=== PATIENT | female | born 1975 | race Caucasian/White ===

== ENCOUNTER 2019-05-02 22:34 | Emergency (ER) | payer BC ==
--- OUTSIDE RECORDS SUMMARY | 2019-05-02 22:47 | XMS REPORT | Summary of Care ---
:1975 Author Organization [facility] Address [address] [facility] [place] [address] Care Team Providers Name Role Phone Alexandru Colbert MD Primary Care Provider Reason for Visit Reason Comments Physical Gynecologic Exam Encounter Details Date Type Department Care Team Description 03/05/2019 Office Visit Ben Black Sha, Routine general medical examination at a health care facility (Primary Dx); MALACHI Wood Pap smear for cervical cancer screening; [address] [facility] Essential hypertension; [place] [address] [place], [place] Pure hypercholesterolemia [phone] [id number] Allergies No Known Allergiesdocumented as of this encounter (statuses as of 03/05/2019) Medications Medication Sig Dispensed Refills Start Date End Date Status hydrochlorothiazide TAKE 1 90 Tab 3 11/03/2018 Active (HCTZ, ORETIC) 25 MG TABLET BY Oral TabIndications: MOUTH EVERY Essential hypertension DAY metoprolol succinate TAKE 1 90 Tab 0 02/03/2019 Active (TOPROL XL) 50 MG Oral TABLET BY TABLET SR 24 MOUTH EVERY HRIndications: Essential DAY hypertension losartan (COZAAR) 50 MG Take 1 Tab 90 Tab 3 03/05/2019 Active Oral Tab by mouth DAILY. fluconazole (DIFLUCAN) Take 1 Tab 3 Tab 0 03/06/2018 03/05/20 Discontinued 150 MG Oral by mouth ONE 19 TabIndications: Vaginal TIME. Use yeast infection prn for vaginal yeast. documented as of this encounter (statuses as of 03/05/2019) Active Problems Problem Noted Date Chronic nonallergic rhinitis 11/27/2013 IUD (intrauterine device) in place 10/27/2013 Overview: Paraguard IUD , placed at [facility] 03/08/2011. Herpes zoster without mention of complication 12/18/2011 Overview: L1 distribution on left side. 12/18/11. Pure hypercholesterolemia 03/10/2010 Essential hypertension 10/14/2007 Family history of diabetes mellitus 10/14/2007 FAMILY HISTORY OF HIGH CHOLESTEROL 10/14/2007 documented as of this encounter (statuses as of 03/05/2019) Immunizations Name Administration Dates Next Due Influenza (IM) Preservative Free 04/21/2018, 05/09/2017, 05/06/2015, 04/06/2014, 03/23/2009 documented as of this encounter Social History Tobacco Use Types Packs/Day Years Used Date Former Smoker Quit: 08/22/2006 Smokeless Tobacco: Never Used Alcohol Use Drinks/Week oz/Week Comments Yes 0 Standard drinks or equivalent 0.0 1 glass wine daily Sex Assigned at Date Recorded Not on file Job Start Date Occupation Industry Not on file Not on file Not on file Travel History Travel Start Travel End No recent travel history available. documented as of this encounter Last Filed Vital Signs Vital Sign Reading Time Taken Comments Blood Pressure 158/92 03/05/2019 9:32 AM EDT Pulse 68 03/05/2019 9:32 AM EDT Temperature - - Respiratory Rate - - Oxygen Saturation 98% 03/05/2019 9:32 AM EDT Inhaled Oxygen Concentration - - Weight 88.5 kg (195 lb) 03/05/2019 9:32 AM EDT Height 168.9 cm (5' 6.5") 03/05/2019 9:32 AM EDT Body Mass Index 31 03/05/2019 9:32 AM EDT documented in this encounter Patient Instructions Patient InstructionsMarianne Dalton FNP - 03/05/2019 9:40 AM EDTLab work and pap smear done today. I will send you results Mammogram next summer Start losartan daily for BP. Goal is below 140/90 Follow up in 3 months.Electronically signed by Marianne Dalton FNP at 2018 10:06 AM EDT documented in this encounter Progress Notes Dong Daltonon, ENVIRONMENTAL SAMPLING TECHNICIAN - 03/05/2019 9:40 AM EDT PATIENT: Lindsey Loyd : 1975 DATE OF SERVICE: 03/05/2019 Chief Complaint Patient presents with Physical Gynecologic Exam SUBJECTIVE: 43-y.o. female for annual routine physical and cooling pan tender exam with pap smear. She is feeling well. Has gained weight and BP up. Patient Active Problem List Diagnosis Date Noted Chronic nonallergic rhinitis 11/27/2013 IUD (intrauterine device) in place 10/27/2013 Paraguard IUD , placed at [facility] 03/08/2011. Herpes zoster without mention of complication 12/18/2011 L1 distribution on left side. 12/18/11. Pure hypercholesterolemia 03/10/2010 Essential hypertension 10/14/2007 Family history of diabetes mellitus 10/14/2007 FAMILY HISTORY OF HIGH CHOLESTEROL 10/14/2007 Current Outpatient Medications Medication Sig hydrochlorothiazide (HCTZ, ORETIC) 25 MG Oral Tab TAKE 1 TABLET BY MOUTH EVERY DAY losartan (COZAAR) 50 MG Oral Tab Take 1 Tab by mouth DAILY. metoprolol succinate (TOPROL XL) 50 MG Oral TABLET SR 24 HR TAKE 1 TABLET BY MOUTH EVERY DAY No current facility-administered medications for this visit. Allergies: Patient has no known allergies. Patient's last menstrual period was 03/05/2019. ROS: She denies constitutional symptoms of fatigue, weakness, weight loss or gain, fevers, night sweats. No dyspnea or chest pain on exertion. No abdominal pain, change in bowel habits, black or bloody stools. No urinary tract symptoms. 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 Now in for 8 years. NO children. Normal menses, no pelvic pain or discharge. No breast pain or new or enlarging lumps on self exam. No neurological complaints. OBJECTIVE: The patient appears well, alert, oriented x 3, in no distress. BP (!) 158/92 (BP Location: Left arm, Patient Position: Sitting) | Pulse 68 | Ht 5' 6.5" (1.689 m) | Wt 195 lb (88.5 kg) | LMP 03/05/2019 | SpO2 98% | BMI 31.00 kg/m ENT normal. Neck supple. No adenopathy or thyromegaly. ERIC. Lungs are clear, good air entry, no wheezes, rhonchi or rales. S1 and S2 normal, no murmurs, regular rate and rhythm. Abdomen soft withouttenderness, guarding, mass or organomegaly. Extremities show no edema, normal peripheral pulses. Neurological is normal, no focal findings. BREAST EXAM: breasts appear normal, no suspicious masses, no skin or nipple changes or axillary nodes PELVIC EXAM: normal external genitalia, vulva, vagina, cervix, uterus and adnexa. IUD string noted. Pap done. BP Readings from Last 3 Encounters: 03/05/19 (!) 158/92 12/10/17 110/78 12/06/16 128/80 ASSESSMENT: ICD-9-CM ICD-10-CM 1. Routine general medical examination at a health care facility V70.0 Z00.00 2. Pap smear for cervical cancer screening V76.2 Z12.4 PAP SMEAR THINPREP AND HPV 3. Essential hypertension, not at goal 401.9 I10 COMPREHENSIVE METABOLIC PANEL 4. Pure hypercholesterolemia 272.0 E78.00 LIPID PROFILE THYROID STIMULATING HORMONE Patient Instructions Lab work and pap smear done today. I will send you results Mammogram next summer Start losartan daily for BP. Goal is below 140/90 Follow up in 3 months. Author: MALACHI Zabala 03/05/2019 10:10 documented in this encounter Plan of Treatment Name Type Priority Associated Diagnoses Order Schedule COMPREHENSIVE METABOLIC Lab Routine Essential hypertension Ordered: PANEL 03/05/2019 LIPID PROFILE Lab Routine Pure hypercholesterolemia Ordered: 03/05/2019 THYROID STIMULATING Lab Routine Pure hypercholesterolemia Ordered: HORMONE 03/05/2019 PAP SMEAR THINPREP AND Lab Routine Pap smear for cervical cancer Ordered: HPV screening 03/05/2019 Health Maintenance Due Date Last Done Comments DIABETES SCREENING 11/30/2018 11/30/2017, 12/19/2016, 10/09/2013, Additional history exists LIPID DISORDER SCREENING 11/30/2018 11/30/2017, 12/19/2016, 10/09/2013, Additional history exists MAMMOGRAM (SCREENING) 12/10/2018 12/10/2017, 12/24/2016, 12/06/2016, Additional history exists INFLUENZA VACCINE (#1) 2019 04/21/2018, 05/09/2017, 05/06/2015, Additional history exists PAP SMEAR 12/07/2019 12/06/2016, 12/06/2016, 10/27/2013, Additional history exists DEPRESSION SCREENING 03/05/2020 03/05/2019 HPV IMMUNIZATION SERIES Aged Out No longer eligible based on patient's age to complete this topic MENINGOCOCCAL VACCINE IMM Aged Out No longer eligible based on patient's age to complete this topic PNEUMOCOCCAL 0-64 YRS Aged Out No longer eligible based on patient's age to complete this topic documented as of this encounter Goals Goal Patient Goal Associated Recent Patient-Stated? Author Type Problems Progress Blood Pressure Blood Pressure 158/92 No Sha, < 140/90 (03/05/2019 MALACHI Lopes 9:32 AM EDT) Note: This is an individualized treatment (blood pressure) goal for Lindsey Loyd : Displayed above (on the left) is your goal for blood pressure control. Your most recent blood pressure is also shown above, on the right. You should try to achieve blood pressures that are lower than your goal listed above (on the left). Weight loss vs. 18 mo Lifestyle 0 (03/05/2019 9:32 AM No Marianne Dalton FNP max (lbs) >= 10 EDT) Note: This is an individualized lifestyle goal for Lindsey Loyd: Your body mass index (BMI) is more than 30. You should lose weight. A reasonable starting goal is to lose 10 pounds. Displayed above is how many pounds you have lost thus far towards your 10 pound weight loss goal. Take all prescribed medications as Self-management Marianne Small FNP directed Note: This is an individualized self-management goal for Lindsey Loyd: Please take all prescribed medications as directed. 1. Do not skip doses. If you cannot afford your medications, talk with your doctor. 2. Use a pill reminder system such as a pill box if needed. Your pharmacist can help you with this. 3. Contact your Pharmacy 5 days before your medication runs out. If you cannot take your medications for any reasons, talk with your doctor. 4. Please bring all of your medication bottles and inhalers (or a list of all your medications/inhalers) with you to every visit. Potential barriers to meeting all of your care plan goals will continue to be addressed on an ongoing basis. documented as of this encounter Results Not on filedocumented in this encounter Visit Diagnoses Diagnosis Routine general medical examination at a health care facility - Primary Pap smear for cervical cancer screening Screening for malignant neoplasm of the cervix Essential hypertension Unspecified essential hypertension Pure hypercholesterolemia documented in this encounter Insurance Payer Benefit Plan / Subscriber ID Effective Dates Phone Address Type Group [facility] xxxxxxxxxxxxxxx [facility] [employer] (Home) [place], [place] [phone] [id number] (Work) documented as of this encounter
--- NOTE | 2019-05-03 00:18 | ED ---
GI/ HPI - HPI Summary HPI Summary: This patient is a 43 year old F presenting to ED with a chief complaint of abnormal heavy vaginal bleeding since earlier today. Patient states her period started 8 days ago and lasted 5-6 days which is normal. Usually when her period stops, she does not bleed again. However the bleeding started again today, which is abnormal for her. Patient reports she is passing clots. Patient checked her IUD and states that she felt that her cervix was distended and there were clots. She thinks her IUD is still in place. Patient had her IUD placed 8 years ago. The patient rates the pain 1/10 in severity. Symptoms aggravated by nothing. Symptoms alleviated by nothing. Patient denies abnormal vaginal discharge other than blood, abdominal pain, fevers, chills, burning while urinating, and nausea. - History of Current Complaint Chief Complaint: EDVaginalBleeding Time Seen by Provider: 05/02/19 23:39 Stated Complaint: HEAVY BLEEDING PER PT Hx Obtained From: Patient Onset/Duration: Started Hours Ago, Still Present Timing: Constant Severity: Mild Current Severity: Mild Vaginal Bleeding Description: Clots Pain Intensity: 1 Associated Signs and Symptoms: Positive: Negative - Burning while urinating, abnormal vaginal discharge. Negative: Nausea, Discharge, Fever, Chills Additional Signs & Symptoms: Positive: IUD. Negative: Vaginal Discharge Aggravating Factor(s): Nothing Alleviating Factor(s): Nothing - Allergy/Home Medications Allergies/Adverse Reactions: Allergies Allergy/AdvReac Type Severity Reaction Status Date / Time No Known Allergies Allergy Verified 05/03/19 00:20 PMH/Surg Hx/FS Hx/Imm Hx Endocrine/Hematology History: Denies: Hx Diabetes Cardiovascular History: Reports: Hx Hypertension - Surgical History Surgery Procedure, Year, and Place: Denies Infectious Disease History: Yes Infectious Disease History: Denies: Traveled Outside the [place] in Last 30 Days - Family History Known Family History: Positive: Diabetes - Social History Alcohol Use: Daily Hx Substance Use: No Substance Use Type: Reports: None Hx Tobacco Use: No Smoking Status (MU): Never Smoked Tobacco Review of Systems Negative: Fever, Chills Negative: Abdominal Pain, Nausea Genitourinary: Other - Abnormal/heavy vaginal bleeding Negative: burning, discharge - vaginal All Other Systems Reviewed And Are Negative: Yes Physical Exam - Summary Physical Exam Summary: General: Well-developed, Well-nourished female. No acute distress. HEENT: Normocephalic, Atraumatic. Eyes: Conjuctiva normal, PERRL. Ears: TMs within normal limits. Nares: (-) discharge, (-) erythema. Oropharynx: Clear, mucous membranes moist, (-) exudates. Neck: Soft, FROM, (-) lymphadenopathy, (-) thyromegaly, (-) JVD. Cardiovascular: Normal sinus rhythm, (-) murmur. Lungs: Clear to auscultation bilaterally (-) wheezes, (-) rales, (-) rhonchi. Abdomen: Soft, non-tender, non-distended, (-) organomegaly, normal bowel sounds. Back: (-) CVA tenderness Extremities: No edema. Skin: Warm, dry, (-) rash. Neuro: Alert and oriented x3, no focal deficits. Psychiatric: Mood normal, affect normal. Triage Information Reviewed: Yes Vital Signs On Initial Exam: Initial Vitals Temp Pulse Resp BP Pulse Ox 97.7 F 92 18 184/107 98 05/02/19 22:36 05/02/19 22:36 05/02/19 22:36 05/02/19 22:36 05/02/19 22:36 Vital Signs Reviewed: Yes Procedures - Sedation Patient Received Moderate/Deep Sedation with Procedure: No Diagnostics - Vital Signs Vital Signs Temp Pulse Resp BP Pulse Ox 05/02/19 22:36 97.7 F 92 18 184/107 98 - Laboratory Result Diagrams: 05/03/19 00:32 05/03/19 00:32 Lab Statement: Any lab studies that have been ordered have been reviewed, and results considered in the medical decision making process. - Ultrasound Transvaginal Ultrasound Interpretation Completed By: Radiologist Summary of Ultrasound Findings: 1. An IUD is normally positioned in the endometrium. 2. No other acute sonographic pathology. Dr. Pineda has reviewed this radiology report. Re-Evaluation - Re-Evaluation First Eval Re-Evaluation Time: 01:16 Comment: I have discussed results with the patient and uterine bleeding is resolved. Discussed symptoms that warrant immediate return to ED. GIGU Course/Dx - Course Course Of Treatment: 43-year-old female with prolonged vaginal bleeding. She states she had her period as expected. Lasted 5-6 days. Stopped 2 days ago. She had some very minimal spotting yesterday. And today started with heavy vaginal bleeding again. She denies any significant abdominal pain. No nausea vomiting or diarrhea. No fevers. Workup demonstrated no significant anemia. Normal pelvic ultrasound. IUD in place. Discussed at length with patient and family. Patient discharged to home. Dysfunctional uterine bleeding. Follow- up with [facility]. Follow-up sooner for any worsening symptoms. - Diagnoses Provider Diagnoses: Dysfunctional uterine bleeding Discharge ED - Sign-Out/Discharge Documenting (check all that apply): Patient Departure - Discharge - Discharge Plan Condition: Stable Disposition: HOME Patient Education Materials: Dysfunctional Uterine Bleeding (ED) Referrals: Alexandru Colbert MD [Primary Care Provider] - 3 Days Additional Instructions: Please follow up with your primary care physician within three days. Please return to ED for any new or worsening symptoms. - Billing Disposition and Condition Condition: STABLE Disposition: Home - Attestation Statements Document Initiated by Scribe: Yes Documenting Scribe: Alexandru Tirado Provider For Whom Romie is Documenting (Include Credential): Deirdre Pineda MD Scribe Attestation: IAlexandru, scribed for Deirdre Pineda MD on 05/03/19 at 0336. Scribe Documentation Reviewed: Yes Provider Attestation: The documentation as recorded by the Alexandru escalante accurately reflects the service I personally performed and the decisions made by me, Deirdre Pineda MD Status of Scribe Document: Viewed
[2019-05-03 00:38] LABS: ABS Basophils 0.1 10^3/ul (0-0.2); ABS Eosinophils 0.1 10^3/ul (0-0.6); ABS Lymphocytes 1.9 10^3/ul (1.0-4.8); ABS Monocytes 0.6 10^3/ul (0-0.8); ABS Neutrophils 4.5 10^3/ul (1.5-7.7); Eosinophil % 1.4 %; Hematocrit 39 % (35-47); Hemoglobin 13.7 g/dL (12.0-16.0); Lymphocyte % 25.8 %; Mean Corpuscular HGB Conc 35 g/dL (31-36); Mean Corpuscular Hemoglobin 31 pg (27-31); Mean Corpuscular Volume 89 fL (80-97); Mean Platelet Volume 6.7 fL (7.4-10.4); Nucleated Red Blood Cells % 0.1; Platelet Count 380 10^3/uL (150-450); Red Blood Count 4.39 10^6 /uL (3.70-4.87); Red Cell Distribution Width 13 % (10-15); White Blood Count 7.2 10^3/uL (3.5-10.8)
[2019-05-03 00:44] LABS: INR 0.97 (0.82-1.09)
[2019-05-03 00:59] LABS: ALT 16 U/L (7-52); AST 13 U/L (13-39); Albumin 3.9 g/dL (3.2-5.2); Albumin/Globulin Ratio 1.4 (1-3); Alkaline Phosphatase 60 U/L (34-104); Anion Gap 8 mmol/L (2-11); Blood Urea Nitrogen 15 mg/dL (6-24); CO2 Carbon Dioxide 26 mmol/L (22-32); Calcium 9.1 mg/dL (8.6-10.3); Chloride 103 mmol/L (101-111); EGFR African American 95.7 (>60); EGFR Non-African American 79.1 (>60); Globulin 2.8 g/dL (2-4); Glucose 113 mg/dL (70-100); Potassium 3.3 mmol/L (3.5-5.0); Sodium 137 mmol/L (135-145); Total Protein 6.7 g/dL (6.4-8.9)
[2019-05-03 01:13] LABS: HCG Pregnancy < 0.60 mIU/mL
[2019-05-03 01:24] VITALS: BP 146/94
== END 2019-05-03 01:23 | disposition home or self-care (01) ==
LOC: ED 22:34
DX: N93.8 Other specified abnormal uterine and vaginal bleeding (principal); I10 Essential (primary) hypertension; Z97.5 Presence of (intrauterine) contraceptive device
CPT/HCPCS: 36415; 76830; 80053; 84702; 85025; 85610; 99282